=== PATIENT | female | born 1970 | race African-American/Black ===

== ENCOUNTER 2018-01-24 01:10 | Emergency (ER) | payer OTHER ==
[~2018-01-24] VITALS: Ht 175.3 cm; Wt 122.1 kg
[~2018-01-24 01:10] MED LIST: DICL75 PO; ZOFR4TAB3 SL
[2018-01-24 01:27] VITALS: BP 151/77; PULSE 65; RESP 16; TEMP 98; O2SAT 98
[2018-01-24] MEDS ORDERED: SODIUM CHLOR 0.9% 1000 ML INJ 1,000 ML IV SCH (02:11)
--- NOTE | 2018-01-24 02:14 | PD ---
HPI Chief Complaint: GI Complaint Time Seen by Provider: 02:11 Travel History International Travel<30 days: No Contact w/Intl Traveler<30days: No Traveled to known affect area: No History of Present Illness HPI 47-year-old female patient presents to the ER today for 4 days history of watery diarrhea multiple times a day, abdominal cramping pains, nausea. She had recently received custody of her great grand niece who attends daycare, and grandniece has had diarrhea as well. She denies any fevers or other symptoms. Modifying Factors: None Associated Signs & Symptoms: Diarrhea, nausea, abdominal cramping Risk Factors: Sick contact, grandniece PFSH Past Medical History Hx Anticoagulant Therapy: No Anemia: Yes Blood Disorders: No Cancer: No Cardiovascular Problems: No Chemotherapy: No Cerebrovascular Accident: No Diabetes: No Endocrine: No Gastrointestinal Disorders: No Genitourinary: No Immune Disorder: No Implanted Vascular Access Dvce: No Musculoskeletal: No Neurologic: No Reproductive: No Respiratory: No Tetanus Vaccination: > 5 Years Influenza Vaccination: No ?: Unknown : 1 Para: 1 Past Surgical History Abdominal Surgery: Yes (lap asha, fam n y) Cholecystectomy: Yes Hysterectomy: No Other Surgery: Yes Social History Alcohol Use: Yes (OCCASIONAL) Tobacco Use: No Substance Use: No Allergies-Medications (Allergen,Severity, Reaction): Coded Allergies: latex (Unverified Allergy, Unknown, ITCH/BURN/BUMPS, 04/30/17) Reported Meds & Prescriptions Reported Meds & Active Scripts Active Zofran ODT (Ondansetron HCl) 4 Mg Tab 4 Mg SL Q6H PRN Diclofenac Sodium 75 Mg Tab 75 Mg PO BID Review of Systems Except as stated in HPI: all other systems reviewed are Neg Physical Exam Narrative GENERAL: Well-developed middle-age -[place] female patient currently and mild distress. Awake and oriented 3. SKIN: Focused skin assessment warm/dry. HEAD: Atraumatic. Normocephalic. EYES: Pupils equal and round. No scleral icterus. No injection or drainage. ENT: No nasal bleeding or discharge. Mucous membranes pink and moist. NECK: Trachea midline. No JVD. CARDIOVASCULAR: Regular rate and rhythm. No murmur appreciated. RESPIRATORY: No accessory muscle use. Clear to auscultation. Breath sounds equal bilaterally. GASTROINTESTINAL: Abdomen soft, non-tender, nondistended. Hepatic and splenic margins not palpable. MUSCULOSKELETAL: No obvious deformities. No clubbing. No cyanosis. No edema. NEUROLOGICAL: Awake and alert. No obvious cranial nerve deficits. Motor grossly within normal limits. Normal speech. PSYCHIATRIC: Appropriate mood and affect; insight and judgment normal. Data Data Last Documented VS Vital Signs Date Time Temp Pulse Resp B/P (MAP) Pulse Ox O2 Delivery O2 Flow Rate FiO2 01/24/18 01:27 98.0 65 16 151/77 (101) 98 Orders Orders Complete Blood Count With Diff (01/24/18 02:11) Comprehensive Metabolic Panel (01/24/18 02:11) Lipase (01/24/18 02:) Urinalysis - C+S If Indicated (01/24/18 02:) Iv Access Insert/Monitor (01/24/18 02:11) Ecg Monitoring (01/24/18 02:) Oximetry (01/24/18 02:11) Ondansetron Inj (Zofran Inj) (01/24/18 02:15) Sodium Chlor 0.9% 1000 Ml Inj (Ns 1000 M (01/24/18 02:11) Sodium Chloride 0.9% Flush (Ns Flush) (01/24/18 02:15) Enteric Path (Stool) (01/24/18 02:11) Labs Laboratory Tests Test 01/24/18 02:18 White Blood Count 4.0 TH/MM3 Red Blood Count 4.36 MIL/MM3 Hemoglobin 10.6 GM/DL Hematocrit 31.8 % Mean Corpuscular Volume 73.0 FL Mean Corpuscular Hemoglobin 24.4 PG Mean Corpuscular Hemoglobin Concent 33.4 % Red Cell Distribution Width 18.7 % Platelet Count 287 TH/MM3 Mean Platelet Volume 8.0 FL Neutrophils (%) (Auto) 35.8 % Lymphocytes (%) (Auto) 45.1 % Monocytes (%) (Auto) 15.9 % Eosinophils (%) (Auto) 2.7 % Basophils (%) (Auto) 0.5 % Neutrophils # (Auto) 1.4 TH/MM3 Lymphocytes # (Auto) 1.9 TH/MM3 Monocytes # (Auto) 0.6 TH/MM3 Eosinophils # (Auto) 0.1 TH/MM3 Basophils # (Auto) 0.0 TH/MM3 CBC Comment AUTO DIFF Differential Comment AUTO DIFF CONFIRMED Ovalocytes 1+ Urine Color YELLOW Urine Turbidity CLEAR Urine pH 6.0 Urine Specific [place] GREATER/EQUAL 1.030 Urine Protein NEG mg/dL Urine Glucose (UA) NEG mg/dL Urine Ketones TRACE mg/dL Urine Occult Blood NEG Urine Nitrite NEG Urine Bilirubin NEG Urine Urobilinogen 0.2 MG/DL Urine Leukocyte Esterase NEG Urine RBC 0-3 /hpf Urine WBC 0-2 /hpf Urine Squamous Epithelial Cells 0-5 /hpf Urine Bacteria OCC /hpf Urine Mucus MOD /lpf Microscopic Urinalysis Comment CULT NOT INDICATED Blood Urea Nitrogen 7 MG/DL Creatinine 0.85 MG/DL Random Glucose 99 MG/DL Total Protein 7.8 GM/DL Albumin 3.6 GM/DL Calcium Level 8.5 MG/DL Alkaline Phosphatase 78 U/L Aspartate Amino Transf (AST/SGOT) 24 U/L Alanine Aminotransferase (ALT/SGPT) 24 U/L Total Bilirubin 0.8 MG/DL Sodium Level 139 MEQ/L Potassium Level 3.3 MEQ/L Chloride Level 107 MEQ/L Carbon Dioxide Level 26.2 MEQ/L Anion Gap 6 MEQ/L Estimat Glomerular Filtration Rate 87 ML/MIN Lipase 145 U/L [facility] Medical Decision Making Medical Screen Exam Complete: Yes Emergency Medical Condition: Yes Medical Record Reviewed: Yes Interpretation(s) Laboratory Tests Test 01/24/18 02:18 Hemoglobin 10.6 GM/DL (11.6-15.3) Hematocrit 31.8 % (35.0-46.0) Mean Corpuscular Volume 73.0 FL (80.0-100.0) Mean Corpuscular Hemoglobin 24.4 PG (27.0-34.0) Red Cell Distribution Width 18.7 % (11.6-17.2) Lymphocytes (%) (Auto) 45.1 % (9.0-44.0) Monocytes (%) (Auto) 15.9 % (0.0-8.0) Neutrophils # (Auto) 1.4 TH/MM3 (1.8-7.7) Ovalocytes 1+ (NORMAL) Urine Ketones TRACE mg/dL (NEG) Urine Bacteria OCC /hpf (NONE) Urine Mucus MOD /lpf (OCC) Potassium Level 3.3 MEQ/L (3.5-5.1) Estimat Glomerular Filtration Rate 87 ML/MIN (>89) Differential Diagnosis Gastroenteritis versus dehydration versus electrolyte abnormalities Narrative Course Abdomen is fairly benign and I do not suspect an acute intra-abdominal process. Her lab work was fairly unremarkable except for mildly low potassium. At this point, she is not vomiting in the ER and is able to keep things down. She is continuing to have watery diarrhea. I suspect that this is likely to be viral considering that sick contacts. My plan would be to release her with symptomatic relief for diarrhea and also for nausea and have her follow-up with primary care doctor. Return for worsening in symptoms as necessary. The plan has been discussed with her and she states understanding. Diagnosis Primary Impression: Gastroenteritis Med/Other Pt SpecificInfo: Prescription(s) given Scripts Ondansetron Odt (Zofran Odt) 4 Mg Tab 4 MG SL Q6HR Y for Nausea/Vomiting, #7 TAB 0 Refills Prov: Preethi Sanchez MD 01/24/18 Loperamide (Imodium A-D) 2 Mg Capsule 2 MG PO DIRECTED Y for DIARRHEA, #15 CAP 0 Refills One capsule after each loose stool. Not to exceed 8 tablets per day. Prov: Preethi Sanchez MD 01/24/18 Disposition: DISCHARGE HOME Condition: Stable Preethi Sanchez MD January 24, 2018 02:14
[2018-01-24] MEDS ORDERED: SODIUM CHLORIDE 0.9% FLUSH 10 ML FLUSH IV FLUSH PRN (02:15)
[2018-01-24] MEDS ORDERED: ONDANSETRON HCL 4 MG/2 ML VIAL IVP ONE (02:15)
[2018-01-24 02:47] LABS: BILIRUBIN, URINE NEG (NEG); BLOOD, URINE NEG (NEG); GLUCOSE,URINE NEG (NEG); KETONE, URINE TRACE mg/dL (NEG); NITRITE,URINE NEG (NEG); URINE COLOR YELLOW (YELLW/STRAW); URINE LEUKOCYTE ESTERASE NEG (NEG)
[2018-01-24 02:50] LABS: AUTOMATED NEUTROPHIL # 1.4 TH/MM3 (1.8-7.7); BASOPHIL % 0.5 % (0.0-2.0); EOSINOPHIL # 0.1 TH/MM3 (0-0.4); EOSINOPHIL % 2.7 % (0.0-4.0); HEMATOCRIT 31.8 % (35.0-46.0); HEMOGLOBIN 10.6 GM/DL (11.6-15.3); LYMPH % 45.1 % (9.0-44.0); LYMPHOCYTE # 1.9 TH/MM3 (1.0-4.8); MEAN CORPUSCULAR HEMOGLOBIN 24.4 PG (27.0-34.0); MEAN CORPUSCULAR HGB CONC 33.4 % (32.0-36.0); MONO % 15.9 % (0.0-8.0); MONOCYTE # 0.6 TH/MM3 (0-0.9); NEUT % 35.8 % (16.0-70.0); PLATELET COUNT 287 TH/MM3 (150-450); RED BLOOD COUNT 4.36 MIL/MM3 (4.00-5.30); RED CELL DISTRIBUTION WIDTH 18.7 % (11.6-17.2)
[2018-01-24 02:55] LABS: WBC, URINE 0-2 /hpf (0-5)
[2018-01-24 02:56] LABS: BACTERIA, URINE OCC /hpf; MUCUS URINE MOD /lpf (OCC); RBC, URINE 0-3 /hpf (0-3); SQUAMOUS EPITHELIAL CELL URINE 0-5 /hpf (0-5)
[2018-01-24 02:57] LABS: CHLORIDE 107 MEQ/L (98-107); SODIUM (NA) 139 MEQ/L (136-145)
[2018-01-24 03:01] LABS: ALBUMIN 3.6 GM/DL (3.4-5.0); BICARBONATE 26.2 MEQ/L (21.0-32.0); BLOOD UREA NITROGEN 7 MG/DL (7-18); CALCIUM 8.5 MG/DL (8.5-10.1); GLUCOSE,RANDOM 99 MG/DL (74-106)
[2018-01-24 03:04] LABS: ALT (GPT) 24 U/L (10-53); AST (GOT) 24 U/L (15-37); CREATININE 0.85 MG/DL (0.50-1.00); GLOMERULAR FILTRATION RATE 87 ML/MIN (>89)
[2018-01-24 03:06] LABS: TOTAL BILIRUBIN ADULT 0.8 MG/DL (0.2-1.0); TOTAL PROTEIN 7.8 GM/DL (6.4-8.2)
[2018-01-24 03:07] LABS: ALKALINE PHOSPHATASE 78 U/L (45-117)
[2018-01-24 03:10] LABS: OVALOCYTES 1+ (NORMAL)
[2018-01-24] MEDS ORDERED: ZOFR4TAB3 SL (03:14)
[2018-01-24] MEDS ORDERED: LOPE-1 PO (03:14)
[2018-01-24 03:19] VITALS: BP 137/63; PULSE 55; RESP 16; O2SAT 100
== END 2018-01-24 03:54 | disposition home or self-care (01) ==
LOC: PHED 01:10
DX: K52.9 Noninfective gastroenteritis and colitis, unspecified (principal)
CPT/HCPCS: 80053; 81001; 83690; 85025; 87506; 96361; 96374; 99284; J2405; J7030